=== PATIENT | female | born 1940 | race Caucasian/White ===

== ENCOUNTER 2017-08-01 11:30 | Inpatient (IN) | payer OTHER ==
[2017-08-01] MEDS ORDERED: TUSSIONEX PENNKINETIC SUSP PO PRN (14:18)
[2017-08-01] MEDS ORDERED: SALINE 3% 15 ML NEB TX ONE (14:49)
[2017-08-01] MEDS: DUONEB 0.5 MG/3 MG NEB SCH ×3 (15:03→21:56)
[2017-08-01 15:10] LABS: BASOPHILS # (AUTO) 0.1 X10^3/uL (0.0-0.1); EOSINOPHILS # (AUTO) 0.7 x10^3/uL (0.0-0.2); EOSINOPHILS % (AUTO) 8.7 % (0.9-2.9); HEMATOCRIT 38.4 % (36.0-47.0); LYMPHOCYTES # (AUTO) 0.8 X10^3/uL (1.3-2.9); LYMPHOCYTES % (AUTO) 9.1 % (21.0-51.0); MEAN CORPUSCULAR HEMOGLOBIN 27.2 pg (27.0-34.0); MEAN CORPUSCULAR HGB CONC 33.8 g/dL (33.0-35.0); MEAN CORPUSCULAR VOLUME 80.6 fL (80.0-100.0); MONOCYTES # (AUTO) 0.4 x10^3/uL (0.3-0.8); NEUTROPHILS # (AUTO) 6.5 x10^3/uL (2.2-4.8); NEUTROPHILS % (AUTO) 76.2 % (42.0-75.0); PLATELET COUNT 237 X10^3/uL (150.0-450.0); RED BLOOD COUNT 4.77 X10^6/uL (3.5-5.4); RED CELL DISTRIBUTION WIDTH 14.7 % (11.6-16.5); WHITE BLOOD COUNT 8.6 X10^3/uL (3.6-10.0)
[2017-08-01 15:23] LABS: ALANINE AMINOTRANSFERASE 24 Units/L (12-78); ALBUMIN 4.4 g/dL (3.4-5.0); ALKALINE PHOSPHATASE 92 Units/L (46-116); ASPARTATE AMINO TRANSFERASE 21 Units/L (15-37); BLOOD UREA NITROGEN 24 mg/dL (7-18); CALCIUM 9.6 mg/dL (8.5-10.1); CARBON DIOXIDE 30.3 mmol/L (21-32); CHLORIDE 97 mmol/L (98-107); COR NA(FOR HYPERGLY) 136 mmol/L (136-145); CREATININE 1.61 mg/dL (0.55-1.02); SODIUM 135 mmol/L (136-145); TOTAL PROTEIN 8.8 g/dL (6.4-8.2); eGFR BLACK RACES 40 (>60); eGFR NON BLACK RACES 33 (>60)
[2017-08-01 15:45] VITALS: BMI 32.9
[2017-08-01] MEDS ORDERED: NS 1/2 1000 ML IV 1,000 ML IV ONE (15:46)
[2017-08-01] MEDS: LEVAQUIN PREMIX IV 750 MG 750 MG/150 ML BAG IV SCH (15:50)
[2017-08-01] MEDS: NS 1/2 1000 ML IV 1,000 ML IV SCH (15:50)
[2017-08-01] MEDS: ROBITUSSIN DM PO SCH ×3 (15:50→20:53)
--- NOTE | 2017-08-01 16:42 | RAD ---
HISTORY: Pneumonia Study: PA and lateral views of the chest. Comparison: None. Findings: The cardiomediastinal silhouette is normal. No focal consolidations, pleural effusions or pneumothora x. Osseous structures demonstrate no acute abnormality. Bilateral hyper expansion with coarsening of interstitial markings IMPRESSION: 1. No acute cardiopulmonary process. 2. Findings consistent with COPD. Reported By:
--- NOTE | 2017-08-01 21:13 | DR.UPDATE ---
H&P Update History and Physical Update: WAS SEEN IN THE OFFICE TODAY. A H&P WAS COMPLETED PRIOR TO ADMISSION. PATIENT HAS BEEN SEEN AND EXAMINED WITH NO CHANGES NOTED TO H&P. Changes noted: NO Yes with the following:
[2017-08-02 05:23] LABS: BASOPHILS % (AUTO) 0.4 % (0.2-1.0); EOSINOPHILS # (AUTO) 0.5 x10^3/uL (0.0-0.2); EOSINOPHILS % (AUTO) 7.3 % (0.9-2.9); HEMATOCRIT 35.1 % (36.0-47.0); HEMOGLOBIN 11.8 g/dL (12.0-16.0); LYMPHOCYTES % (AUTO) 15.9 % (21.0-51.0); MEAN CORPUSCULAR HEMOGLOBIN 27.3 pg (27.0-34.0); MEAN CORPUSCULAR HGB CONC 33.5 g/dL (33.0-35.0); MEAN CORPUSCULAR VOLUME 81.5 fL (80.0-100.0); MONOCYTES # (AUTO) 0.5 x10^3/uL (0.3-0.8); MONOCYTES % (AUTO) 8.5 % (0.0-13.0); NEUTROPHILS # (AUTO) 4.3 x10^3/uL (2.2-4.8); NEUTROPHILS % (AUTO) 67.9 % (42.0-75.0); PLATELET COUNT 209 X10^3/uL (150.0-450.0); RED CELL DISTRIBUTION WIDTH 14.8 % (11.6-16.5); WHITE BLOOD COUNT 6.3 X10^3/uL (3.6-10.0)
[2017-08-02] MEDS ORDERED: NS 1/2 1000 ML IV 1,000 ML IV ONE ×2 (05:32→20:11)
[2017-08-02] MEDS: NS 1/2 1000 ML IV 1,000 ML IV SCH ×3 (05:33→21:40)
[2017-08-02 05:39] LABS: ALANINE AMINOTRANSFERASE 19 Units/L (12-78); ALBUMIN 3.6 g/dL (3.4-5.0); ALKALINE PHOSPHATASE 77 Units/L (46-116); ASPARTATE AMINO TRANSFERASE 17 Units/L (15-37); BLOOD UREA NITROGEN 25 mg/dL (7-18); CARBON DIOXIDE 26.4 mmol/L (21-32); CHLORIDE 98 mmol/L (98-107); COR NA(FOR HYPERGLY) 135 mmol/L (136-145); CREATININE 1.38 mg/dL (0.55-1.02); SODIUM 135 mmol/L (136-145); TOTAL PROTEIN 7.6 g/dL (6.4-8.2); eGFR BLACK RACES 48 (>60); eGFR NON BLACK RACES 39 (>60)
[2017-08-02] MEDS: ROBITUSSIN DM PO SCH ×5 (05:56→21:35)
[2017-08-02] MEDS ORDERED: TYLENOL 325 MG TAB PO PRN (07:03)
[2017-08-02] MEDS: LEVAQUIN PREMIX IV 750 MG 750 MG/150 ML BAG IV SCH (08:50)
[2017-08-02] MEDS: DUONEB 0.5 MG/3 MG NEB SCH ×4 (08:51→21:51)
[2017-08-02] MEDS ORDERED: NexIUM PO PRN (09:17)
[2017-08-02] MEDS: [UNRECOGNIZED DRUG - OTHER] PO SCH (10:50)
[2017-08-02] MEDS ORDERED: PATIENT'S HOME MEDICATION PO PRN (11:33)
--- NOTE | 2017-08-02 11:37 | CT ---
HISTORY: Altered mental status. Study: CT brain without contrast Comparison: None. Technique: Multiple axial images of the brain were obtained from the skull base to the vertex without administra tion of IV contrast. Dose reduction techniques including Automated Exposure Control (AEC) and adjust ment of mA and kV were utilized. Findings: Age-related cortical atrophy and chronic small vessel ischemic changes. No acute intraparenchymal hem orrhage or mass can be identified. No extra-axial fluid collections are seen. No alteration in the attenuation of the brain parenchyma can be identified to suggest acute or subacute ischemic change. The ventricular system is symmetric and nondilated. The osseous structures are intact. Moderate muco isaias thickening of the bilateral maxillary sinuses and ethmoidal air cells. Remaining visualized paran graciela sinuses and mastoid air cells are clear. IMPRESSION: 1. No evidence of acute intracranial pathology. If clinically concerned for acute ischemia/infarction , MRI brain is more sensitive. 2. Sinus disease as above. Reported By:
[2017-08-02] MEDS ORDERED: NEURONTIN TAB 600 MG PO SCH (21:00)
[2017-08-02] MEDS ORDERED: ZOCOR TAB 20 MG PO SCH (21:00)
[2017-08-02] MEDS: PATIENT'S HOME MEDICATION PO SCH ×2 (21:36→21:37)
--- NOTE | 2017-08-02 22:13 | PCM.PROG ---
Progress Note - Progress Note for Day of Date: 08/02/17 - Subjective Subjective: IS BEING TREATED FOR COMMUNITY ACQUIRED PNEUMONIA AND COPD. TODAY, SHE IS ALERT AND ORIENTED, LYING IN BED ON MORNING ROUNDS. SHE CONTINUES WITH COMPLAINTS OF SHORTNESS OF BREATH AND A PRODUCTIVE COUGH. FAMILY REPORTS THAT PATIENT HAS HAD EPISODES OF DIZZINESS AND CONFUSION. ON EXAMINATION , HEART IS REGULAR IN RATE AND RHYTHM. BILATERAL LUNGS ARE NOTED WITH SCATTERED WHEEZING AND RHONCHI THROUGHOUT. ABDOMEN IS ROUND, SOFT, AND NON-TENDER WITH NORMAL BOWEL SOUNDS NOTED IN ALL QUADRANTS. HER VITALS THIS MORNING ARE 98.5-88- 18-92%-108/58. LABS WERE OBTAINED. ABNORMAL LAB VALUES INCLUDE THE FOLLOWING: HGB 11.8, HCT 35.1, SODIUM 135, BUN 25, CREATININE 1.38, GLUCOSE 114. TODAYS CHEST XRAY REVEALS FINDINGS CONSISTENT WITH COPD. A BRAIN CT WAS OBTAINED THIS MORNING AND REVELAED NO EVIDENCE OF ACUTE INTRACRANIAL PATHOLOGY. MODERATE MUCOSAL THICKENING OF THE BILATERAL MAXILLARY SINUSES AND ETHMOIDAL AIR CELLS. SHE IS CURRENTLY RECEIVING LEVAQUIN 750MG IV DAILY. TODAY, WE WILL START FLONASE AND RESUME HOME MEDICATIONS. OTHERWISE, WE WILL CONTINUE WITH CURRENT PLAN OF CARE. WE PLAN TO FOLLOW UP WITH AM LABS AND CONTINUE TO MONITOR PATIENT. - Past Medical Family Social History Past Med/Fam/Surg Hx: No changes since H&P Allergies: Allergies No Known Drug Allergies [NKDA] Allergy (Verified 08/01/17 14:50) - Review of Systems ROS: No change since H&P - Vital Signs and I&O's Vital Signs: Temperature 98.2 F Pulse Rate [Right Brachial] 87 Pulse Rate [Left Brachial] 110 Pulse Rate 82 Respiratory Rate 18 Blood Pressure [Right Arm] 111/67 Blood Pressure [Left Arm] 108/58 O2 Sat by Pulse Oximetry 92 Intake and Output: Intake & Output 07/31/17 08/01/17 08/02/17 08/03/17 11:59 11:59 11:59 11:59 Intake Total 1415 680 Balance 1415 680 - Physical Exam Oriented: Normal Eyes: Normal Ear: Normal Nose: Other (NASAL CONGESTION ) Throat: Normal Respiratory: Diminished, Wheezes, Rhonchi Cardiovascular: Normal : Normal Auscultation: Bowel Sounds: Normal Palpation: Normal Tenderness: Normal Musculoskeletal: Normal Psychiatric: Normal Mood Description: Calm Affect: Normal Speech Pattern: Clear, Appropriate - Laboratory and Diagnostics Result Diagrams: 08/02/17 04:28 08/02/17 04:28 Labs: 08/01/17 15:13 Sputum - Expectorated Sputum Sputum Culture - Preliminary 08/01/17 15:13 Sputum - Expectorated Sputum - Final Laboratory WBC 6.3 X10^3/uL (3.6-10.0) 08/02/17 04: RBC 4.30 X10^6/uL (3.5-5.4) 08/02/17 04:28 Hgb 11.8 g/dL (12.0-16.0) L 08/02/17 04:28 Hct 35.1 % (36.0-47.0) L 08/02/17 04: MCV 81.5 fL (80.0-100.0) 08/02/17 04: MCH 27.3 pg (27.0-34.0) 08/02/17 04: MCHC 33.5 g/dL (33.0-35.0) 08/02/17 04: RDW 14.8 % (11.6-16.5) 08/02/17 04:28 Plt Count 209 X10^3/uL (150.0-450.0) 08/02/17 04: MPV 8.0 fL (7.4-11.0) 08/02/17 04:28 Neut % (Auto) 67.9 % (42.0-75.0) 08/02/17 04: Lymph % (Auto) 15.9 % (21.0-51.0) L 08/02/17 04:28 [place] % (Auto) 8.5 % (0.0-13.0) 08/02/17 04:28 Eos % (Auto) 7.3 % (0.9-2.9) H 08/02/17 04:28 Baso % (Auto) 0.4 % (0.2-1.0) 08/02/17 04:28 Neut # (Auto) 4.3 x10^3/uL (2.2-4.8) 08/02/17 04:28 Lymph # (Auto) 1.0 X10^3/uL (1.3-2.9) L 08/02/17 04:28 [place] # (Auto) 0.5 x10^3/uL (0.3-0.8) 08/02/17 04:28 Eos # (Auto) 0.5 x10^3/uL (0.0-0.2) H 08/02/17 04:28 Baso # (Auto) 0.0 X10^3/uL (0.0-0.1) 08/02/17 04:28 Absolute Nucleated RBC 0.1 /100WBC 08/02/17 04:28 Sodium 135 mmol/L (136-145) L 08/02/17 04:28 Corrected Sodium 135 mmol/L (136-145) L 08/02/17 04:28 Potassium 4.1 mmol/L (3.5-5.1) 08/02/17 04:28 Chloride 98 mmol/L (98-107) 08/02/17 04:28 Carbon Dioxide 26.4 mmol/L (21-32) 08/02/17 04:28 BUN 25 mg/dL (7-18) H 08/02/17 04:28 Creatinine 1.38 mg/dL (0.55-1.02) H 08/02/17 04:28 Est GFR (MDRD) Af Amer 48 (>60) L 08/02/17 04:28 Est GFR (MDRD) Non-Af 39 (>60) L 08/02/17 04:28 Glucose 114 mg/dL (65-99) H 08/02/17 04:28 Calcium 9.0 mg/dL (8.5-10.1) 08/02/17 04:28 Corrected Calcium TNP 08/02/17 04:28 Total Bilirubin 0.90 mg/dL (0.2-1.0) 08/02/17 04:28 AST 17 Units/L (15-37) 08/02/17 04:28 ALT 19 Units/L (12-78) 08/02/17 04:28 Alkaline Phosphatase 77 Units/L (46-116) 08/02/17 04:28 Total Protein 7.6 g/dL (6.4-8.2) 08/02/17 04:28 Albumin 3.6 g/dL (3.4-5.0) 08/02/17 04:28 Globulin 4.0 g/dL (2.5-4.5) 08/02/17 04:28 Albumin/Globulin Ratio 0.9 Ratio (1.1-2.1) L 08/02/17 04:28 - Plan (1) Bronchopneumonia Status: Acute Plan: LEVAQUIN 750MG IV DAILY, RESPIRATORY TREATMENTS, SUPPLEMENTAL OXYGEN, CONTINUE TO MONITOR (2) COPD exacerbation Status: Acute Plan: RESPIRATORY TREATMENTS, CONTINUE TO MONITOR (3) Sinus disease Status: Acute Plan: LEVAQUIN 750MG IV DAILY, FLONASE, CONTINUE TO MONITOR
[2017-08-03 06:21] LABS: BASOPHILS % (AUTO) 0.9 % (0.2-1.0); EOSINOPHILS % (AUTO) 18.7 % (0.9-2.9); HEMATOCRIT 34.1 % (36.0-47.0); HEMOGLOBIN 11.6 g/dL (12.0-16.0); LYMPHOCYTES # (AUTO) 1.7 X10^3/uL (1.3-2.9); LYMPHOCYTES % (AUTO) 33.1 % (21.0-51.0); MEAN CORPUSCULAR HEMOGLOBIN 27.4 pg (27.0-34.0); MEAN CORPUSCULAR HGB CONC 34.2 g/dL (33.0-35.0); MEAN PLATELET VOLUME 8.1 fL (7.4-11.0); MONOCYTES # (AUTO) 0.5 x10^3/uL (0.3-0.8); MONOCYTES % (AUTO) 9.2 % (0.0-13.0); NEUTROPHILS % (AUTO) 38.1 % (42.0-75.0); PLATELET COUNT 207 X10^3/uL (150.0-450.0); RED BLOOD COUNT 4.26 X10^6/uL (3.5-5.4); RED CELL DISTRIBUTION WIDTH 14.9 % (11.6-16.5); WHITE BLOOD COUNT 5.2 X10^3/uL (3.6-10.0)
--- NOTE | 2017-08-03 06:24 | RAD ---
Examination: Portable AP chest History: Cough, SOB Comparison reference 08/01/2017 Findings: Continued normal heart size with clear lungs and pleural spaces. Surgical findings right sh oulder. Impression: No change; no acute abnormality demonstrated. Reported By:
[2017-08-03 06:36] LABS: ALANINE AMINOTRANSFERASE 19 Units/L (12-78); ALBUMIN 3.4 g/dL (3.4-5.0); ALKALINE PHOSPHATASE 72 Units/L (46-116); ASPARTATE AMINO TRANSFERASE 18 Units/L (15-37); BLOOD UREA NITROGEN 19 mg/dL (7-18); CALCIUM 9.1 mg/dL (8.5-10.1); CARBON DIOXIDE 27.3 mmol/L (21-32); CHLORIDE 100 mmol/L (98-107); COR NA(FOR HYPERGLY) 136 mmol/L (136-145); CREATININE 1.14 mg/dL (0.55-1.02); SODIUM 135 mmol/L (136-145); TOTAL PROTEIN 7.5 g/dL (6.4-8.2); eGFR BLACK RACES 59 (>60); eGFR NON BLACK RACES 49 (>60)
[2017-08-03] MEDS: DUONEB 0.5 MG/3 MG NEB SCH ×4 (08:30→20:51)
[2017-08-03] MEDS: FLONASE NASAL SPRAY ENOSTRIL SCH (08:49)
[2017-08-03] MEDS: ROBITUSSIN DM PO SCH ×4 (08:49→21:49)
[2017-08-03] MEDS: LEVAQUIN PREMIX IV 750 MG 750 MG/150 ML BAG IV SCH (08:49)
[2017-08-03] MEDS: [UNRECOGNIZED DRUG - OTHER] PO SCH (08:50)
[2017-08-03] MEDS ORDERED: NS 1/2 1000 ML IV 1,000 ML IV ONE ×2 (15:17→21:42)
[2017-08-03] MEDS: NS 1/2 1000 ML IV 1,000 ML IV SCH ×2 (15:28→21:50)
--- NOTE | 2017-08-03 18:36 | PCM.PROG ---
Progress Note - Progress Note for Day of Date: 08/03/17 - Subjective Subjective: IS BEING TREATED FOR COMMUNITY ACQUIRED PNEUMONIA AND COPD. TODAY, SHE IS ALERT AND ORIENTED, LYING IN BED ON MORNING ROUNDS. SHE CONTINUES WITH COMPLAINTS OF SHORTNESS OF BREATH AND A PRODUCTIVE COUGH. ON EXAMINATION, HEART IS REGULAR IN RATE AND RHYTHM. BILATERAL LUNGS ARE NOTED WITH SCATTERED WHEEZING AND RHONCHI THROUGHOUT. ABDOMEN IS ROUND, SOFT, AND NON- TENDER WITH NORMAL BOWEL SOUNDS NOTED IN ALL QUADRANTS. HER VITALS THIS MORNING ARE 98.3-75-20-96%-110/64. LABS WERE OBTAINED. ABNORMAL LAB VALUES INCLUDE THE FOLLOWING: HGB 11.6, HCT 34.1, SODIUM 135, BUN 19, CREATININE 1.14, GLUCOSE 124. TODAY, WE WILL CONTINUE WITH IV ANTIBIOTICS AND RESPIRATORY TREATMENTS. OTHERWISE, WE WILL CONTINUE WITH CURRENT PLAN OF CARE. WE PLAN TO FOLLOW UP WITH AM LABS AND CONTINUE TO MONITOR PATIENT. - Past Medical Family Social History Past Med/Fam/Surg Hx: No changes since H&P Allergies: Allergies No Known Drug Allergies [NKDA] Allergy (Verified 08/01/17 14:50) - Review of Systems ROS: No change since H&P - Vital Signs and I&O's Vital Signs: Temperature 98.2 F Pulse Rate [Right Brachial] 92 Pulse Rate [Left Brachial] 110 Pulse Rate 85 Respiratory Rate 20 Blood Pressure [Right Arm] 133/65 Blood Pressure [Left Arm] 108/58 O2 Sat by Pulse Oximetry 98 Intake and Output: Intake & Output 08/01/17 08/02/17 08/03/17 08/04/17 11:59 11:59 11:59 11:59 Intake Total 1415 1320 650 Balance 1415 1320 650 - Physical Exam Oriented: Normal Eyes: Normal Ear: Normal Nose: Other (NASAL CONGESTION ) Throat: Normal Respiratory: Diminished, Wheezes, Rhonchi Cardiovascular: Normal : Normal Auscultation: Bowel Sounds: Normal Palpation: Normal Tenderness: Normal Musculoskeletal: Normal Psychiatric: Normal Mood Description: Calm Affect: Normal Speech Pattern: Clear, Appropriate - Laboratory and Diagnostics Result Diagrams: 08/03/17 05:10 08/03/17 05:10 Labs: 08/01/17 15:13 Sputum - Expectorated Sputum Sputum Culture - Final 08/01/17 15:13 Sputum - Expectorated Sputum - Final Laboratory WBC 5.2 X10^3/uL (3.6-10.0) 08/03/17 05:10 RBC 4.26 X10^6/uL (3.5-5.4) 08/03/17 05:10 Hgb 11.6 g/dL (12.0-16.0) L 08/03/17 05:10 Hct 34.1 % (36.0-47.0) L 08/03/17 05:10 MCV 80.0 fL (80.0-100.0) 08/03/17 05:10 MCH 27.4 pg (27.0-34.0) 08/03/17 05:10 MCHC 34.2 g/dL (33.0-35.0) 08/03/17 05:10 RDW 14.9 % (11.6-16.5) 08/03/17 05:10 Plt Count 207 X10^3/uL (150.0-450.0) 08/03/17 05:10 MPV 8.1 fL (7.4-11.0) 08/03/17 05:10 Neut % (Auto) 38.1 % (42.0-75.0) L 08/03/17 05:10 Lymph % (Auto) 33.1 % (21.0-51.0) 08/03/17 05:10 [place] % (Auto) 9.2 % (0.0-13.0) 08/03/17 05:10 Eos % (Auto) 18.7 % (0.9-2.9) H 08/03/17 05:10 Baso % (Auto) 0.9 % (0.2-1.0) 08/03/17 05:10 Neut # (Auto) 2.0 x10^3/uL (2.2-4.8) L 08/03/17 05:10 Lymph # (Auto) 1.7 X10^3/uL (1.3-2.9) 08/03/17 05:10 [place] # (Auto) 0.5 x10^3/uL (0.3-0.8) 08/03/17 05:10 Eos # (Auto) 1.0 x10^3/uL (0.0-0.2) H 08/03/17 05:10 Baso # (Auto) 0.0 X10^3/uL (0.0-0.1) 08/03/17 05:10 Absolute Nucleated RBC 0.1 /100WBC 08/03/17 05:10 Sodium 135 mmol/L (136-145) L 08/03/17 05:10 Corrected Sodium 136 mmol/L (136-145) 08/03/17 05:10 Potassium 3.9 mmol/L (3.5-5.1) 08/03/17 05:10 Chloride 100 mmol/L (98-107) 08/03/17 05:10 Carbon Dioxide 27.3 mmol/L (21-32) 08/03/17 05:10 BUN 19 mg/dL (7-18) H 08/03/17 05:10 Creatinine 1.14 mg/dL (0.55-1.02) H 08/03/17 05:10 Est GFR (MDRD) Af Amer 59 (>60) 08/03/17 05:10 Est GFR (MDRD) Non-Af 49 (>60) L 08/03/17 05:10 Glucose 124 mg/dL (65-99) H 08/03/17 05:10 Calcium 9.1 mg/dL (8.5-10.1) 08/03/17 05:10 Corrected Calcium TNP 08/03/17 05:10 Total Bilirubin 0.50 mg/dL (0.2-1.0) 08/03/17 05:10 AST 18 Units/L (15-37) 08/03/17 05:10 ALT 19 Units/L (12-78) 08/03/17 05:10 Alkaline Phosphatase 72 Units/L (46-116) 08/03/17 05:10 Total Protein 7.5 g/dL (6.4-8.2) 08/03/17 05:10 Albumin 3.4 g/dL (3.4-5.0) 08/03/17 05:10 Globulin 4.1 g/dL (2.5-4.5) 08/03/17 05:10 Albumin/Globulin Ratio 0.8 Ratio (1.1-2.1) L 08/03/17 05:10 - Plan (1) Bronchopneumonia Status: Acute Plan: LEVAQUIN 750MG IV DAILY, RESPIRATORY TREATMENTS, SUPPLEMENTAL OXYGEN, CONTINUE TO MONITOR (2) COPD exacerbation Status: Acute Plan: RESPIRATORY TREATMENTS, CONTINUE TO MONITOR (3) Sinus disease Status: Acute Plan: LEVAQUIN 750MG IV DAILY, FLONASE, CONTINUE TO MONITOR
[2017-08-03] MEDS: PATIENT'S HOME MEDICATION PO SCH ×2 (21:49)
[2017-08-04 05:43] LABS: BASOPHILS # (AUTO) 0.1 X10^3/uL (0.0-0.1); EOSINOPHILS # (AUTO) 1.1 x10^3/uL (0.0-0.2); EOSINOPHILS % (AUTO) 18.2 % (0.9-2.9); HEMATOCRIT 34.7 % (36.0-47.0); HEMOGLOBIN 11.7 g/dL (12.0-16.0); LYMPHOCYTES # (AUTO) 2.1 X10^3/uL (1.3-2.9); LYMPHOCYTES % (AUTO) 35.3 % (21.0-51.0); MEAN CORPUSCULAR HEMOGLOBIN 27.1 pg (27.0-34.0); MEAN CORPUSCULAR HGB CONC 33.6 g/dL (33.0-35.0); MEAN CORPUSCULAR VOLUME 80.8 fL (80.0-100.0); MEAN PLATELET VOLUME 8.1 fL (7.4-11.0); MONOCYTES # (AUTO) 0.4 x10^3/uL (0.3-0.8); NEUTROPHILS # (AUTO) 2.4 x10^3/uL (2.2-4.8); NEUTROPHILS % (AUTO) 39.5 % (42.0-75.0); PLATELET COUNT 210 X10^3/uL (150.0-450.0); RED CELL DISTRIBUTION WIDTH 14.6 % (11.6-16.5); WHITE BLOOD COUNT 6.1 X10^3/uL (3.6-10.0)
[2017-08-04 06:03] LABS: ALANINE AMINOTRANSFERASE 20 Units/L (12-78); ALBUMIN 3.4 g/dL (3.4-5.0); ALKALINE PHOSPHATASE 72 Units/L (46-116); ASPARTATE AMINO TRANSFERASE 18 Units/L (15-37); BLOOD UREA NITROGEN 18 mg/dL (7-18); CARBON DIOXIDE 25.6 mmol/L (21-32); CHLORIDE 100 mmol/L (98-107); COR NA(FOR HYPERGLY) 137 mmol/L (136-145); CREATININE 1.16 mg/dL (0.55-1.02); SODIUM 136 mmol/L (136-145); TOTAL PROTEIN 7.4 g/dL (6.4-8.2); eGFR BLACK RACES 58 (>60); eGFR NON BLACK RACES 48 (>60)
--- NOTE | 2017-08-04 06:10 | RAD ---
Examination: Portable AP chest History: SOB Comparison 08/03/2017 Findings: Continued normal heart size. The lungs and pleural spaces are clear without evidence for ab normality. No pneumothorax seen. Impression: No change; no acute findings. Reported By:
[2017-08-04 07:58] VITALS: BP 152/73
[2017-08-04] MEDS: DUONEB 0.5 MG/3 MG NEB SCH (09:00)
[2017-08-04] MEDS: [UNRECOGNIZED DRUG - OTHER] PO SCH (10:07)
[2017-08-04] MEDS: LEVAQUIN PREMIX IV 750 MG 750 MG/150 ML BAG IV SCH (10:08)
[2017-08-04] MEDS: ROBITUSSIN DM PO SCH (10:08)
[2017-08-04] MEDS: FLONASE NASAL SPRAY ENOSTRIL SCH (10:08)
== END 2017-08-04 11:45 | disposition home or self-care (01) | DRG 194 ==
LOC: UNDOADMIN 11:30 → MED/SURG 11:30
PROVIDERS: ADMIT Internal Medicine; ATTEND Internal Medicine
DX: J18.0 Bronchopneumonia, unspecified organism (principal); J20.8 Acute bronchitis due to other specified organisms; I10 Essential (primary) hypertension; J30.89 Other allergic rhinitis; J44.1 Chronic obstructive pulmonary disease with (acute) exacerbation; R06.02 Shortness of breath
CPT/HCPCS: 36415; 70450; 71045; 71046; 80053; 85025; 87040; 87070; 87205; 94640; 94760; A4222; J1956; J7620